=== PATIENT | female | born 1960 | race Caucasian/White ===

== ENCOUNTER → 2019-09-30 10:27 | Outpatient (CLI) | payer BC, OTHER, SELFPAY ==
[2019-09-30 12:54] LABS: T4 Free Direct 1.08 ng/dL (0.76-1.46); Thyroid Stim Hormone (TSH) 1.62 uIU/mL (0.358-3.74)
[2019-10-01 21:05] LABS: Anti-Thyroglobulin AB < 1.0 IU/mL (0.0-0.9); Thyroid Peroxidase AB 16 IU/mL (0-34)
== END ==
PROVIDERS: Family Provider Family Medicine; PCP Family Medicine; Referring Provider Dermatology; Visit Provider Dermatology
DX: L80 Vitiligo (principal); L82.1 Other seborrheic keratosis; L81.4 Other melanin hyperpigmentation; D18.01 Hemangioma of skin and subcutaneous tissue; D22.5 Melanocytic nevi of trunk; Z71.89 Other specified counseling; L57.8 Other skin changes due to chronic exposure to nonionizing radiation; L57.0 Actinic keratosis; D22.62 Melanocytic nevi of left upper limb, including shoulder
CPT/HCPCS: 36415; 84432; 84439; 84443; 86376; 86800

== ENCOUNTER → 2019-11-25 11:55 | Outpatient (CLI) | payer BC, OTHER, SELFPAY ==
--- NOTE | 2019-11-25 12:12 | EKG12_ITS ---
Test Reason : PREOP Blood Pressure : / mmHG Vent. Rate : 069 BPM Atrial Rate : 069 BPM P-R Int : 158 ms QRS Dur : 070 ms QT Int : 394 ms P-R-T Axes : 054 031 041 degrees QTc Int : 422 ms Normal sinus rhythm Normal ECG Confirmed by JEFFERY HERNANDES, MICHELLE ([id number]), marketing editor LENCHO ACEVES ([id number]) on 11/26/2019 1:41:02 PM Referred By: Oleg Das Confirmed By:MICHELLE GIL MD
[2019-11-25 12:27] LABS: Hematocrit 39.8 % (37-47); Hemoglobin 13.2 g/dL (12.0-15.0); Mean Corp Hgb Conc 33.2 g/dL (32-36); Mean Corpuscular Hgb 29.2 pg (27.0-32.0); Mean Corpuscular Volume 88.1 fL (81-99); Mean Platelet Vol. 9.3 fl (6.2-12.0); Platelet Count 261 K/mm3 (150-450); RBC Distribution Width CV 12.5 % (11.6-14.6); RBC Distribution Width SD 40.5 fl (35.1-43.9); Red Blood Count 4.52 M/mm3 (4.2-5.4); White Blood Count 4.4 K/mm3 (4.4-11.0)
[2019-11-25 12:49] LABS: Anion Gap 7 (5-15); BUN 16 mg/dL (7-18); BUN/Creat Ratio 18.6 RATIO (10-20); Calcium,Total 9.6 mg/dL (8.5-10.1); Chloride 107 mmol/L (98-107); Creatinine, Serum 0.86 mg/dL (0.55-1.02); EST Glomerular Filtration Rate 71 mL/min (>60); Est Glom Filt Rate - Afr Amer 86 mL/min (>60); Glucose 104 mg/dL (74-106); Potassium 3.9 mmol/L (3.5-5.1); Sodium Level 141 mmol/L (136-145)
== END ==
PROVIDERS: PCP Family Medicine; Referring Provider Physician Assistant; Visit Provider Physician Assistant
DX: Z01.818 Encounter for other preprocedural examination (principal); Z01.810 Encounter for preprocedural cardiovascular examination
CPT/HCPCS: 36415; 80048; 85027; 93005

== ENCOUNTER 2021-01-06 14:01 | Outpatient (RCR) | payer BC, SELFPAY | END 2021-03-01 23:59 | LOC: IMMUN 14:01 | PROVIDERS: PCP Family Medicine; Visit Provider Family Medicine | DX: Z23 Encounter for immunization (principal) | CPT/HCPCS: 0001A; 0002A; 91300 ==

== ENCOUNTER → 2025-03-23 | Outpatient (CLI) | payer MEDICARE, SELFPAY ==
--- NOTE | 2025-03-23 08:03 | US_ITS ---
PROCEDURE: ABDOMEN LIMITED 03/23/2025 REASON FOR EXAM: HISTORY OF CBD DILATION TECHNIQUE: Right upper quadrant abdominal ultrasound COMPARISON: None provided. FINDINGS: Liver: Nonenlarged, measured at 11.9 cm in length. Diffuse increased hepatic echogenicity is most consistent with diffuse fatty infiltration of the liver. No intrahepatic biliary ductal dilation is noted. Normal hepatopetal flow of the main portal vein is noted. Gallbladder: Length measured at 5.6 cm. No gallstones or sludge are seen. No evidence of gallbladder wall thickening or pericholecystic fluid collection. No sonographic Mabry's sign was elicited. Common bile duct: Size within the upper range of normal, with varying measurements from 5.4 mm to 6.2 mm. . Pancreas: Visualized portions are sonographically unremarkable. Kidneys: The right kidney measures 9.0 x 3.9 x 3.5 cm. No evidence of hydronephrosis. Peritoneal Findings: No free fluid is seen. US/Abdomen Limited IMPRESSION: Findings consistent with diffuse fatty infiltration of the liver. Common duct measures at the upper range of normal. No acute process is seen. Reading Location: [place] [id number]
== END | disposition home or self-care (01) ==
PROVIDERS: PCP Student in an Organized Health Care Education/Training Program
DX: K83.8 Other specified diseases of biliary tract (principal)
CPT/HCPCS: 76705

== ENCOUNTER 2025-04-29 09:52 | Day surgery (SDC) | payer MEDICARE, SELFPAY ==
--- NOTE | 2025-04-24 16:09 | PAT.ANE_ITS ---
Pre-Assessment Diagnosis/Proposed Procedure Planned Operative Procedure(s): EGD Anesthesia History Anesthesia History - advertising account representative: Anesthesia History - advertising account representative Hx Hospitalization No 04/24/25 12:42 Any Problems With Anesthesia No 04/24/25 12:42 Cholinesterase deficiency No 04/24/25 12:42 You/Your Family Experience No 04/24/25 12:42 fever (hyperthermia) with Relationship Recent Exposure to Contagious Disease Does patient have nerve No 04/24/25 12:42 stimulator Patient instructed to have device shut off --Does patient have Pacemaker or ICD? When Was Last Pacemaker Check QUESTION #4 FULL TEXT: You/Your Family Experience fever (hyperthermia) with Anesthesia Last Oral Intake Last Oral intake: Last Oral Intake NPO since Meds taken in AM with sips of water? Meds patient instructed to take am of surgery PONV PONV - advertising account representative: PONV - advertising account representative Female Yes 04/24/25 12:42 HX of Motion Sickness No 04/24/25 12:42 HX of N/V After Surgery No 04/24/25 12:42 Non-Smoker Yes 04/24/25 12:42 Duration of Surgery greater No 04/24/25 12:42 than 60 minutes Number of Risk Factors 2 04/24/25 12:42 PONV Score Moderate Risk 04/24/25 12:42 Respiratory Assessment Respiratory Assessment - advertising account representative: Respiratory Tract Infection Hx - advertising account representative Hx Respiratory Tract Infection No 04/24/25 12:42 STOP Sleep Apnea STOP Sleep Apnea - advertising account representative: STOP Sleep Apnea - advertising account representative Hx Hypertension No 04/24/25 12:42 Hx Sleep Apnea No 04/24/25 12:42 CPAP BIPAP Do you snore loudly (louder No 04/24/25 12:42 than talking or can be heard Do you often feel tired/ No 04/24/25 12:42 fatigued/ sleepy during daytime? Has anyone observed you stop No 04/24/25 12:42 breathing during sleep? STOP Results Negative 04/24/25 12:42 QUESTION #5 FULL TEXT : Do you snore loudly (louder than talking or can be heard through closed doors)? Tobacco Use History Tobacco Use History - advertising account representative: Tobacco Use History - advertising account representative Tobacco Use Smoking Status Never smoker 04/24/25 12:42 Hx Tobacco Use No 04/24/25 12:42 Years Smoking Packs Smoked per Day Smoking Cessation Date was within the last 15 years Hx Smoking Cessation Date Hx Smoking Cessation Counseling Hematologic Medial History Hematologic Hx - advertising account representative: Hematologic Medical Hx - general surgery physician assistant Hx of Blood Transfusion No 04/24/25 12:42 Hx of Transfusion in last 3 No 04/24/25 12:42 Months Date of Last Transfusion (if within last 3 months) Ever experience any problems No 04/24/25 12:42 with transfusion(s)? Specify any problems Hx of Preganancy in last 3 No 04/24/25 12:42 Months Nurse Filling Out Transfusion [facility] 04/24/25 12:42 & Questions: Date: 04/24/25 04/24/25 12:42 Time: 12:49 04/24/25 12:42 Patient unable to answer at this time (ie. confused, unrespo /Reproduction History /Reproductive History - advertising account representative: /Reproductive Hx- advertising account representative Hx Now No 04/24/25 12:42 Gestational Age (in weeks): EDC: Hx Hx Para Hx Section SAB No 04/24/25 12:42 [facility] Medical History (Updated 04/24/25 @ 12:48 by Maryuri Mcrae) Alcohol use Wears contact lenses Gastric reflux Non-smoker Leg cramps History of echocardiogram History of stress test History of irregular heartbeat Vitiligo Uterovaginal prolapse, incomplete SOB (shortness of breath) on exertion Osteoarthritis Mild tricuspid regurgitation Liver mass HLD (hyperlipidemia) Hallux valgus Dilated bile duct Calcification of mitral valve Aortic valve sclerosis Acid reflux Home Medications ?Medication ?Instructions ?Recorded ?Last Taken ?Type multivitamin 1 tab PO DAILY 12/20/22 Unkn own History famotidine 40 mg tablet 40 mg PO QHS #30 tabs Unknown Rx pantoprazole 40 mg tablet,delayed 40 mg PO DAILY #30 t abs 03/19/25 Unknown Rx release Allergy/AdvReac Type Severity Reaction Status Date / Time No Known Allergies Allergy Unverified 03/19/25 10:44 Family History Mother Heart disease Father Heart disease Brother HLD (hyperlipidemia) Surgical History (Updated 04/24/25 @ 12:48 by Maryuri Mcrae) History of carpal tunnel release of both wrists History of bunionectomy of both great toes History of lumpectomy of right breast History of tonsillectomy and adenoidectomy H/O arthroscopy of knee H/O total hip arthroplasty Social History Smoking Status: Never smoker alcohol intake: current alcohol intake frequency: a few times a week Audit: Pertinent Findings Pertinent Findings EKG Perinent findings: October 24, 2022. Sinus rhythm. Stress test pertinent findings: November 22, 2022. Negative for ischemia based on EKG criteria. Patient achieved a METS of 10.1. Echo (EF%) pertinent findings: November 14, 2022. EF of 55 to 60%. No aortic stenosis noted. RVSP is 27 mmHg. Recommendation Anesthesia Recommendation Anesthesia recommendation: OPTIMIZED for anesthesia
[2025-04-29] VITALS (7 sets, daily range): BP systolic 98–137; BP diastolic 59–66; PULSE 63–74; RESP 16; TEMP 36.5–36.9; O2SAT 96–100; BMI 32.0
[2025-04-29] MEDS: Lactated Ringers 1,000 ML 15 ML IV (10:13)
--- NOTE | 2025-04-29 10:15 | HP.PCM_ITS ---
HPI - General General Date of Admission: 04/29/25 Date of Service: 04/29/25 Chief Complaint: chronic cough HPI Narrative OMID LOWE, is a 65 F who presents regarding concerns for chronic cough with heartburn. Her PCP has advised her to have attention paid to the fact she's known to have a dilated CBD of 8mm with gallbladder present from an abdominal US in 2022. CT report reviewed and recommended MRCP for correlation to findings. She complains of chronic cough every time she eats and throughout the day, she notes some mild dysphonia and chronic post nasal drip without known allergies. She reports occasional difficulty swallowing, frequent heartburn without reflux. She chews Tums 1 to 2 times a day for relief of heartburn. She's never had an EGD, her last colonoscopy was December 2022. She reports daily complete BMs and denies hematochezia and melena. [facility] Medical History Alcohol use Wears contact lenses Gastric reflux Non-smoker Leg cramps History of echocardiogram History of stress test History of irregular heartbeat Vitiligo Uterovaginal prolapse, incomplete SOB (shortness of breath) on exertion Osteoarthritis Mild tricuspid regurgitation Liver mass HLD (hyperlipidemia) Hallux valgus Dilated bile duct Calcification of mitral valve Aortic valve sclerosis Acid reflux Home Medications ?Medication ?Instructions ?Recorded ?Last Taken ?Type multivitamin 1 tab PO DAILY 12/20/22 08/02/15 History famotidine 40 mg tablet 40 mg PO QHS #30 tabs 04/28/25 Rx pantoprazole 40 mg tablet,delayed 40 mg PO DAILY #30 t abs 03/19/25 04/28/25 Rx release Allergy/AdvReac Type Severity Reaction Status Date / Time No Known Allergies Allergy Unverified 03/19/25 10:44 Family History Mother Heart disease Father Heart disease Brother HLD (hyperlipidemia) Surgical History History of carpal tunnel release of both wrists History of bunionectomy of both great toes History of lumpectomy of right breast History of tonsillectomy and adenoidectomy H/O arthroscopy of knee H/O total hip arthroplasty Social History Smoking Status: Never smoker alcohol intake: current alcohol intake frequency: a few times a week ROS Constitutional Constitutional: Denies fatigue, fever(s), poor appetite, weight gain or weight loss Gastrointestinal Gastrointestinal: Denies belching, bloating, change in bowel habits, change in stool character, chewing difficulty, coffee ground emesis, constipation, cramping, diarrhea, dyspepsia, dysphagia, early satiety, excessive flatus, fecal incontinence, heartburn, hematemesis, hematochezia, hemorrhoids, loose stools, melena, nausea, odynophagia, rectal bleeding, tenesmus, vomiting or weight changes Vital Signs Vital Signs Vital Signs: 04/29/25 10:06 04/29/25 10:06 Temperature 98.4 F Temperature Source Temporal Pulse Rate 67 Respiratory Rate 16 Respiratory Pattern Normal Blood Pressure 137/66 H Blood Pressure Mean 89 Blood Pressure Source Monitor Blood Pressure Position Sitting Blood Pressure Location Right Arm Pulse Ox 97 Oxygen Delivery Method Bi-pap Weight Weight: 158 lb 11.725 oz Body Mass Index (BMI) 32.0 Physical Exam Const alert, oriented x3, no apparent distress and healthy appearing General Appearance: cooperative GI normal to inspection, nondistended, normoactive bowel sounds, soft to palpation, non-tender and non-distended Percussion: normal to percussion Rectal Exam: deferred Assessment & Plan Assessment/Plan (1) Heartburn: (2) Cough: QUALIFIERS: Cough type: chronic Qualified Code(s): R05.3 - Chronic cough PLAN: Plan Assessment and Plan Assessment and Plan (1) Dilated bile duct: Status: Acute (2) Cough: Status: Chronic Qualifiers: Cough type: chronic Qualified Code(s): R05.3 - Chronic cough (3) Heartburn: Status: Chronic Orders: Orders Gallbladder Today K83.8 - Other specified diseases of biliary tract Medications: New pantoprazole 40 mg PO DAILY 30 tabs 2RF famotidine 40 mg PO QHS 30 tabs 2RF Plan OMID LOWE, is a 65 F who presents to the office today for establishment with [facility] regarding concerns for chronic cough with heartburn. Discussed care plan with her and she is agreeable. * schedule EGD * pantoprazole 40mg PO daily 30minutes before eating * famotidine 40mg PO QHS * GB US to assess CBD * office FU 2wks after EGD
--- NOTE | 2025-04-29 10:38 | PCM.PRE.AN2 ---
ASA Classification* ASA Classification ASA Classification: 2 Assessment & Plan Anesthesia* Anesthesia Assessment Anesthesia Assessment: Discussed sedation and/or anesthesia options, risks, benefits, and alternatives with patient/parents/legal guardian/POA. Questions invited. The patient/parents/legal guardian/POA seems to understand and agrees to proceed with anesthesia plan. Reviewed the physical assessment, medical history, allergy history and patient home medications list prior to surgery/procedure/anesthetic and documented any changes. Performed airway and anesthesia risk assessments. Anesthesia Type Anesthesia Type: MAC Anesthesia Focused Assessment* Temperature: 98.4 F Pulse Rate: 67 Blood Pressure: 137/66 Respiratory Rate: 16 Pulse Ox: 97 Airway Assessment Mouth opens: >3 cm Mallampati Score: II Labs Anesthesia Preop lab: CBC WBC 4.4 K/mm3 (4.4-11.0) 11/25/19 12:11/25/19 RBC 4.52 M/mm3 (4.2-5.4) 11/25/19 12:11/25/19 Hgb 13.2 g/dL (12.0-15.0) 11/25/19 12:11/25/19 Hct 39.8 % (37-47) 11/25/19 12:11/25/19 Plt Count 261 K/mm3 (150-450) 11/25/19 12:11/25/19 CHEMISTRY Potassium 3.9 mmol/L (3.5-5.1) 11/25/19 12:11/25/19 Sodium 141 mmol/L (136-145) 11/25/19 12:11/25/19 BUN 16 mg/dL (7-18) 11/25/19 12:11/25/19 Creatinine 0.86 mg/dL (0.55-1.02) 11/25/19 12:11/25/19 Glucose 104 mg/dL (74-106) 11/25/19 12:11/25/19 TSH 1.62 uIU/mL (0.358-3.74) 09/30/19 10:35 09/30/19 COAG Pre-Assessment Diagnosis/Proposed Procedure Planned Operative Procedure(s): EGD Anesthesia History Anesthesia History - certification engineer: Anesthesia History - certification engineer Hx Hospitalization No 04/24/25 12:42 Any Problems With Anesthesia No 04/24/25 12:42 Cholinesterase deficiency No 04/24/25 12:42 You/Your Family Experience No 04/24/25 12:42 fever (hyperthermia) with Relationship Recent Exposure to Contagious No 04/29/25 10:06 Disease Does patient have nerve No 04/24/25 12:42 stimulator Patient instructed to have device shut off --Does patient have Pacemaker No 04/29/25 10:06 or ICD? When Was Last Pacemaker Check QUESTION #4 FULL TEXT: You/Your Family Experience fever (hyperthermia) with Anesthesia Last Oral Intake Last Oral intake: Last Oral Intake NPO since 21:00 04/29/25 10:06 Meds taken in AM with sips of No 04/29/25 10:06 water? Meds patient instructed to take am of surgery PONV PONV - certification engineer: PONV - certification engineer Female Yes 04/24/25 12:42 HX of Motion Sickness No 04/24/25 12:42 HX of N/V After Surgery No 04/24/25 12:42 Non-Smoker Yes 04/24/25 12:42 Duration of Surgery greater No 04/24/25 12:42 than 60 minutes Number of Risk Factors 2 04/24/25 12:42 PONV Score Moderate Risk 04/24/25 12:42 Height & Weight Height & Weight: Anesthesia: Height & Weight Height 4 ft 11 in 04/29/25 10:06 Weight: 72 kg 04/29/25 10:06 Body Mass Index (BMI) 32.0 04/29/25 10:06 Respiratory Assessment Respiratory Assessment - certification engineer: Respiratory Tract Infection Hx - certification engineer Hx Respiratory Tract Infection No 04/24/25 12:42 STOP Sleep Apnea STOP Sleep Apnea - certification engineer: STOP Sleep Apnea - certification engineer Hx Hypertension No 04/24/25 12:42 Hx Sleep Apnea No 04/24/25 12:42 CPAP BIPAP Do you snore loudly (louder No 04/24/25 12:42 than talking or can be heard Do you often feel tired/ No 04/24/25 12:42 fatigued/ sleepy during daytime? Has anyone observed you stop No 04/24/25 12:42 breathing during sleep? STOP Results Negative 04/24/25 12:42 QUESTION #5 FULL TEXT : Do you snore loudly (louder than talking or can be heard through closed doors)? Tobacco Use History Tobacco Use History - certification engineer: Tobacco Use History - certification engineer Tobacco Use Smoking Status Never smoker 04/24/25 12:42 Hx Tobacco Use No 04/24/25 12:42 Years Smoking Packs Smoked per Day Smoking Cessation Date was within the last 15 years Hx Smoking Cessation Date Hx Smoking Cessation Counseling Hematologic Medial History Hematologic Hx - certification engineer: Hematologic Medical Hx - rn clinical documentation Hx of Blood Transfusion No 04/24/25 12:42 Hx of Transfusion in last 3 No 04/24/25 12:42 Months Date of Last Transfusion (if within last 3 months) Ever experience any problems No 04/24/25 12:42 with transfusion(s)? Specify any problems Hx of Preganancy in last 3 No 04/24/25 12:42 Months Nurse Filling Out Transfusion [facility] 04/24/25 12:42 & Questions: Date: 04/24/25 04/24/25 12:42 Time: 12:49 04/24/25 12:42 Patient unable to answer at this time (ie. confused, unrespo /Reproduction History /Reproductive History - certification engineer: /Reproductive Hx- certification engineer Hx Now No 04/24/25 12:42 Gestational Age (in weeks): EDC: Hx Hx Para Hx Section SAB No 04/24/25 12:42 Active Medications Active Medications: Current Medications Generic Name Dose Route Start Last Admin Trade Name Freq PRN Reason Stop Dose Admin Lactated Ringer's 1,000 mls @ 15 mls/hr 04/29/25 10:00 04/29/25 10:13 IV 15 mls/hr .Q48H ROSHAN Administration PFSH Medical History Alcohol use Wears contact lenses Gastric reflux Non-smoker Leg cramps History of echocardiogram History of stress test History of irregular heartbeat Vitiligo Uterovaginal prolapse, incomplete SOB (shortness of breath) on exertion Osteoarthritis Mild tricuspid regurgitation Liver mass HLD (hyperlipidemia) Hallux valgus Dilated bile duct Calcification of mitral valve Aortic valve sclerosis Acid reflux Home Medications ?Medication ?Instructions ?Recorded ?Last Taken ?Type multivitamin 1 tab PO DAILY 12/20/22 04/28/25 History famotidine 40 mg tablet 40 mg PO QHS #30 tabs 03/19/25 04/28/25 Rx pantoprazole 40 mg tablet,delayed 40 mg PO DAILY #30 tabs 03/19/25 04/28/25 Rx release Allergy/AdvReac Type Severity Reaction Status Date / Time No Known Allergies Allergy Unverified 03/19/25 10:44 Family History Mother Heart disease Father Heart disease Brother HLD (hyperlipidemia) Surgical History History of carpal tunnel release of both wrists History of bunionectomy of both great toes History of lumpectomy of right breast History of tonsillectomy and adenoidectomy H/O arthroscopy of knee H/O total hip arthroplasty Social History Smoking Status: Never smoker alcohol intake: current alcohol intake frequency: a few times a week Review of Systems (Anesthesia) ROS Narrative System reviewed and no additional complaints, except as documented.
--- NOTE | 2025-04-29 10:45 | EGD_PTH ---
PATIENT: OMID LOWE LOC: [facility] U#:[id number] AGE/SX: 65/F ROOM: RE04/29/[address]: Dr. Remigio Sierra DO : 1960 BED: DIS: 04/29/2025 SPEC #: [id number] RECD: 04/29/25 12:00 STATUS: LIBORIO REFausto #: [id number] MARCIA: 04/29/25 10:[address]: Remigio Sierra DEPT: SURGICAL PATHOLOGY RECD BY: Rudi Mcintosh ENTERED: 04/29/25 13:43 SP TYPE: EGD BIOPSY CHRIST DR: Dr. Senthil Mark DO Tissues: A - Esophagus, NOS Procedures: Surgery Specimen Level IV HEADER OPERATION: EGD with biopsy PRE-OP DIAGNOSIS: Heartburn, cough TISSUE SUBMITTED: A- Distal esophagus biopsy MICROSCOPIC DIAGNOSIS A. Distal esophagus, biopsy: - Squamous mucosa with reactive changes. - Columnar mucosa with focal goblet cell metaplasia - see note. - Negative for dysplasia. Note: The diagnosis depends on the location of the biopsy and the extent of the mucosal irregularity. If the biopsy originates from the tubular esophagus and the mucosal irregularity extends at least 1 cm above the top of the gastric folds, this represents Quintero mucosa. If the biopsy originates from the gastric cardia and/or the mucosal irregularity is less than 1 cm in extent, this represents intestinal metaplasia. MICROSCOPIC DESCRIPTION Slides are reviewed. GROSS DESCRIPTION A. Received in fixative is one container labeled with the patient's name and designated Distal esophagus biopsy. The specimen consists of multiple irregular fragments of light seaman soft tissue that in aggregate measure <0.1 to 0.4 cm. The specimen is totally submitted in one cassette. [place] 04/29/2025 CPT:39729
--- NOTE | 2025-04-29 11:49 | PCM.POST.ANE ---
Anesthesia: Postop Eval I Current Vital Signs Temperature: 97.7 F Pulse Rate: 74 Blood Pressure: 103/66 Respiratory Rate: 16 Pulse Ox: 96 Oxygen Delivery Method: Room Air Assessment Airway patent: Yes Spontaneous unlabored respirations: Yes Mental status: Awake and Calm nausea: No Vomiting: No Anesthesia Complication: No Fluid Hydration Crystalloid volume administer (ml): 300 Total IV fluid infused: 300 Progress Note Anesthesia document: Postop Eval 1 completed: Yes
--- NOTE | 2025-04-29 12:05 | OP.EGD_ITS ---
Patient Name: Adwoa Cuevas Procedure Date: 04/29/2025 11:28 AM Date of : 1960 Age: 65 Procedure: Upper GI endoscopy Indications: Heartburn, Suspected esophageal reflux Providers: Remigio Sierra DO Referring MD: Senthil Mark Do Medicines: Monitored Anesthesia Care Patient Profile: This is a 65 year old female. Refer to note in patient chart for documentation of history and physical. Patient has symptoms of acute cough, chronic dyspepsia and acute nausea. Complications: No immediate complications. Procedure: Pre-Anesthesia Assessment: - Prior to the procedure, a History and Physical was performed, and patient medications and allergies were reviewed. The patient is competent. The risks and benefits of the procedure and the sedation options and risks were discussed with the patient. All questions were answered and informed consent was obtained. Patient identification and proposed procedure were verified by the physician in the pre-procedure area. Mental Status Examination: alert and oriented. Airway Examination: normal oropharyngeal airway and neck mobility. Respiratory Examination: clear to auscultation. CV Examination: normal. Prophylactic Antibiotics: The patient does not require prophylactic antibiotics. Prior Anticoagulants: The patient has taken no anticoagulant or antiplatelet agents except for NSAID medication. ASA Grade Assessment: II - A patient with mild systemic disease. After reviewing the risks and benefits, the patient was deemed in satisfactory condition to undergo the procedure. The anesthesia plan was to use monitored anesthesia care (MAC). Immediately prior to administration of medications, the patient was re-assessed for adequacy to receive sedatives. The heart rate, respiratory rate, oxygen saturations, blood pressure, adequacy of pulmonary ventilation, and response to care were monitored throughout the procedure. The physical status of the patient was re-assessed after the procedure. After obtaining informed consent, the endoscope was passed under direct vision. Throughout the procedure, the patient's blood pressure, pulse, and oxygen saturations were monitored continuously. The Endoscope was introduced through the mouth, and advanced to the second part of duodenum. The upper GI endoscopy was accomplished without difficulty. The patient tolerated the procedure well. Scope In: 11:36:41 AM Scope Out: 11:40:11 AM Total Procedure Duration Time 0 hours 3 minutes 30 seconds Findings: The Z-line was irregular and was found 40 cm from the incisors. Biopsies were taken with a cold forceps for histology. Verification of patient identification for the specimen was done. Estimated blood loss was minimal. No gross lesions were noted in the entire examined stomach. Excessive fluid was found in the entire examined stomach. No gross lesions were noted in the second portion of the duodenum. Impression: - Z-line irregular, 40 cm from the incisors. Biopsied. - No gross lesions in the entire stomach. - Excessive gastric fluid. - No gross lesions in the second portion of the duodenum. Recommendation: - Discharge patient to home. - Resume previous diet. - Continue present medications. - Await pathology results. Procedure Code(s): --- Professional --- 16129, Esophagogastroduodenoscopy, flexible, transoral; with biopsy, single or multiple CPT copyright 2021 [employer]. All rights reserved. The codes documented in this report are preliminary and upon concrete tester review may be revised to meet current compliance requirements. Remigio Sierra DO 04/29/2025 12:05:26 PM This report has been signed electronically. Number of Addenda: 0 Note Initiated On: 04/29/2025 11:28 AM
--- NOTE | 2025-04-29 12:06 | OP.PROVAT_ITS ---
04/29/2025 Senthil Mark Do Re : Upper GI endoscopy procedure for Adwoa Cuevas Dear Jas This procedure was performed on Tuesday, April 29, 2025. My impressions and recommendations are as follows: Impressions : - Z-line irregular, 40 cm from the incisors. Biopsied. - No gross lesions in the entire stomach. - Excessive gastric fluid. - No gross lesions in the second portion of the duodenum. Recommendations : - Discharge patient to home. - Resume previous diet. - Continue present medications. - Await pathology results. My findings are described in the full procedure note, which is enclosed. If I can be of further assistance, please feel free to contact me at . Sincerely, Remigio Sierra, 04/29/2025 12:05:26 PM This report has been signed electronically.
--- NOTE | 2025-04-29 14:47 | PCM.POSTANE2 ---
Anesthesia Postop Eval I Sum Postop Eval Completion status Anesthesia document: Postop Eval 1 completed: Yes Anesthesia Postop Eval I Summary Anesthesia Postop Eval I Summary: Anesthesia Postop Eval I: Assessment Summary Airway patent Yes 04/29/25 11:50 [email or web address] Spontaneous unlabored Yes 04/29/25 11:50 [email or web address] respirations Mental status Awake,Calm 04/29/25 11:50 [email or web address] nausea No 04/29/25 11:50 [email or web address] Vomiting No 04/29/25 11:50 [email or web address] Anesthesia Postop Eval I: Fluid Summary Crystalloid volume administer 300 04/29/25 11:50 [email or web address] (ml) Colloids volume administered ( ml) Blood Product volume administered (ml) Total IV fluid infused 300 04/29/25 11:50 [email or web address] Anesthesia Postop Eval I: Summary Notes Anesthesia Complication No 04/29/25 11:50 [email or web address] Anesthesia Complication Comment: Post-operative progress note Anesthesia: Postop Eval II Evaluation Mental status: Awake Pain Level: 0 nausea: No Vomiting: No
== END 2025-04-29 12:20 | disposition home or self-care (01) ==
LOC: EN 09:53 → AC 09:55
PROVIDERS: PCP Student in an Organized Health Care Education/Training Program; Referring Provider Student in an Organized Health Care Education/Training Program; Visit Provider Internal Medicine Gastroenterology
PROC: 0DJ08ZZ Inspection of Upper Intestinal Tract, Via Natural or Artificial Opening Endoscopic (ICD-10-PCS; CPT 43235; principal; 2025-04-29 10:40)
DX: K22.70 Barrett's esophagus without dysplasia (principal); K21.9 Gastro-esophageal reflux disease without esophagitis; R09.82 Postnasal drip; E78.5 Hyperlipidemia, unspecified; R05.3 Chronic cough; R49.0 Dysphonia; R13.10 Dysphagia, unspecified; Z79.899 Other long term (current) drug therapy
CPT/HCPCS: 43239; 88305; J2405